=== PATIENT | female | born 1940 | race Caucasian/White ===

== ENCOUNTER 2016-11-15 18:52 | Emergency (ER) | payer MEDICARE, OTHER, MEDICAID ==
[2016-11-15 19:06] VITALS: BP 157/74
--- NOTE | 2016-11-15 19:43 | EDM.PDOC ---
ED HPI GENERAL MEDICAL PROBLEM - General Chief Complaint: Respiratory Problem Stated Complaint: BY AMBULANCE DIFICULTY BREATHING Time Seen by Provider: 11/15/16 19:40 Source of Information: Reports: EMS History Limitations: Reports: Other (dementia) - History of Present Illness INITIAL COMMENTS - FREE TEXT/NARRATIVE: arrived in distress. - Related Data Allergies Allergy/AdvReac Type Severity Reaction Status Date / Time heparin Allergy Other Verified 11/15/16 19:34 ED ROS GENERAL - Review of Systems Review Of Systems: ROS reveals no pertinent complaints other than HPI. ED EXAM, GENERAL - Physical Exam Exam: See Below Exam Limited By: No Limitations General Appearance: Alert, WD/WN, Moderate Distress, Other (vomiting choking) Ears: Hearing Grossly Normal Throat/Mouth: Other (suctioned and got out piece of meat, pt improved now no distress) Head: Atraumatic Neck: Non-Tender, Full Range of Motion Respiratory/Chest: No Respiratory Distress, No Accessory Muscle Use, Rhonchi, Other (basilar) Cardiovascular: Regular Rate, Rhythm GI/Abdominal: Soft, Non-Tender Neurological: Alert, Other (dementia) Psychiatric: Flat Affect Skin Exam: Warm, Dry Lymphatic: No Adenopathy Course - Vital Signs Last Recorded V/S: Last Vital Signs Temp 35.8 C 11/15/16 19:03 Pulse 97 11/15/16 19:03 Resp 20 11/15/16 19:03 BP 157/74 H 11/15/16 19:05 Pulse Ox 98 11/15/16 19:03 Departure - Departure Time of Disposition: 19:42 Disposition: Home, Self-Care 01 Condition: Good Clinical Impression: Foreign body in throat Qualifiers: Encounter type: initial encounter Qualified Code(s): T17.208A - Unspecified foreign body in pharynx causing other injury, initial encounter - Discharge Information Forms: ED Department Discharge Additional Instructions: 1) caution with large pieces of food. 2) recheck if there is any change or concern
== END 2016-11-15 20:25 | disposition home or self-care (01) ==
LOC: DL.ED 18:52
DX: T17.228A Food in pharynx causing other injury, initial encounter (principal); Z88.8 Allergy status to other drugs, medicaments and biological substances
CPT/HCPCS: 99282; 99283